=== PATIENT | female | born 1995 | race Caucasian/White ===

== ENCOUNTER 2019-06-18 13:03 | Emergency (ER) | payer OTHER ==
[2019-06-18 13:12] VITALS: BP 134/71; PULSE 74; TEMP 98.9; BMI 21.7
--- NOTE | 2019-06-18 13:20 | PDOC ---
History of Present Illness - General Chief Complaint: Pain, Acute Stated Complaint: PELVIC PAIN History Source: Patient - History of Present Illness Initial Comments: 06/18/19 14:43 23F with hx recent HSV diagnosis p/w one week of lower abdominal pain and diarrhea. She reports that the pain began approx one week ago, 09/07, non radiating, described as an ache. She reports diminished appetite and nausea but denies any vomiting. She reports that her LMP was 05/26 and that her period is typically irregular. She denies any dysuria, any vaginal discharge or bleeding, fevers. Past History - Past Medical History Allergies/Adverse Reactions: Allergies Allergy/AdvReac Type Severity Reaction Status Date / Time No Known Allergies Allergy Verified 06/18/19 13:06 Home Medications: Ambulatory Orders NK [No Known Home Medication] 06/18/19 COPD: No - Psycho Social/Smoking Cessation Hx Smoking History: Unknown if ever smoked Information on smoking cessation initiated: Yes Hx Alcohol Use: No Drug/Substance Use Hx: No Review of Systems - Review of Systems Able to Perform ROS?: Yes Comments:: 06/18/19 14:50 ROS: GENERAL/CONSTITUTIONAL: No fever or chills. No weakness. HEAD, EYES, EARS, NOSE AND THROAT: No change in vision. No ear pain or discharge. No sore throat. CARDIOVASCULAR: No chest pain or shortness of breath RESPIRATORY: No cough, wheezing, or hemoptysis. GASTROINTESTINAL: Nausea, abdominal pain, diarrhea. No vomiting, constipation. GENITOURINARY: No dysuria, frequency, or change in urination. MUSCULOSKELETAL: No joint or muscle swelling or pain. No neck or back pain. SKIN: No rash NEUROLOGIC: No headache, vertigo, loss of consciousness, or change in strength/ sensation. ENDOCRINE: No increased thirst. No abnormal weight change HEMATOLOGIC/LYMPHATIC: No anemia, easy bleeding, or history of blood clots. ALLERGIC/IMMUNOLOGIC: No hives or skin allergy. *Physical Exam - Vital Signs Last Vital Signs Temp Pulse Resp BP Pulse Ox 98.9 F 74 16 134/71 100 06/18/19 13:04 06/18/19 13:04 06/18/19 13:04 06/18/19 13:04 06/18/19 13:04 Medical Decision Making - Medical Decision Making 06/18/19 14:41 Discharge - Discharge Information Problems reviewed: Yes Clinical Impression/Diagnosis: Abdominal pain Qualifiers: Abdominal location: lower abdomen, unspecified Qualified Code(s): R10.30 - Lower abdominal pain, unspecified Condition: Stable Disposition: HOME - Admission No - Follow up/Referral - Patient Discharge Instructions Patient Printed Discharge Instructions: DI for Abdominal Pain-Adult Additional Instructions: You were seen in the ER for abdominal pain. Your urine did not show signs of a urine infection. Please follow up with your primary care provider as soon as possible, in the next 5 days. Please return to the ER if you develop high fevers , weakness, intractable vomiting, or worsening of pain. - Post Discharge Activity
--- NOTE | 2019-06-18 13:43 | PDOC ---
Attending Attestation - Resident Resident Name: Thomas Macias - HPI HPI: 06/18/19 14:52 pt presents to the ED complaining of a one week history of intermittent, crampy , mild pelvic pain. Denies fever, nausea or vomiting or pelvic complaints. Denies dysuria. Does complain of creamy, whitish vaginal discharge. History of similar episode in March--had STI testing at that time that was negative. - Physicial Exam PE: 06/18/19 14:55 Agree with resident exam. Patient is alert and in no acute distress. Abdomen is soft, non tender, non distended without guarding or rebound. Pelvic: moderate amount of whitish discharge. No active discharge from the os. No CMT. No adnexal tenderness. - Medical Decision Making 06/18/19 14:57 Pt presents to the ED complaining of pelvic pain. Denies fever, nausea or vomiting or other associated symptoms. Low suspicion for torsion given the nature and intensity of her pain. Exam does not show signs of PID, so will not treat empirically. Patient instructed to return immediately to the ED for worsening symptoms. Will call in two days for results of GC. [employer] referral given.
== END 2019-06-18 15:01 | disposition home or self-care (01) ==
LOC: FER 13:03
DX: R10.30 Lower abdominal pain, unspecified (principal)
CPT/HCPCS: 36415; 81003; 84703; 87491; 87591; 99282-25